=== PATIENT | male | born 2000 | race Hispanic/Latino ===

== ENCOUNTER 2021-05-25 11:07 | Emergency (ER) | payer SELFPAY ==
[~2021-05-25] VITALS: Ht 167.6 cm; Wt 57.2 kg
[2021-05-25] MEDS ORDERED: TETRACAINE HCL 0.5% OPTH SOLN 4 ML BTL OP STA (11:24)
[2021-05-25] MEDS ORDERED: FLUORESCEIN SOD(OPTH) 1 MG STRP OP ONE (11:30)
== END 2021-05-25 11:46 | disposition home or self-care (01) ==
LOC: ER 11:21
DX: H57.12 Ocular pain, left eye (principal)
CPT/HCPCS: 99283